=== PATIENT | female | born 1940 | race Caucasian/White ===

== ENCOUNTER 2021-06-08 08:52 | Emergency (ER) | payer OTHER ==
[~2021-06-08] VITALS: Ht 149.9 cm; Wt 70.8 kg
[2021-06-08 09:28] VITALS: BP 147/76
[2021-06-08 10:50] LABS: Basophils # (auto) 0.1 10 ^3/uL (0-0.2); Basophils % (auto) 2.7 % (0.0-2.0); Eosinophils # (auto) 0 10 ^3/uL (0-0.8); Eosinophils % (auto) 0.1 % (0.0-7.0); Hematocrit 42.8 % (36.0-46.0); Hemoglobin 14.5 g/dL (12.2-16.2); Lymphocytes # (auto) 0.3 10 ^3/uL (0.4-5.4); Lymphocytes % (auto) 7.5 % (10.0-50.0); Mean Corpuscular Hemoglobin 29.2 pg (28.0-32.0); Mean Corpuscular Hgb Conc. 33.8 g/dL (32.0-36.0); Mean Corpuscular Volume 86.2 fL (80.0-100.0); Monocytes # (auto) 0.3 10 ^3/uL (0-1.3); Monocytes % (auto) 6.5 % (0.0-12.0); Neutrophils # (auto) 3.6 10 ^3/uL (1.6-8.6); Neutrophils % (auto) 83.2 % (37.0-80.0); Nucleated Red Blood Cells % 0.3 %; Red Blood Cells 4.97 10^6/uL (4.0-5.20); Red Cell Distribution Width 14.3 % (11.8-14.3); White Blood Cell 4.3 10^3/uL (4.4-10.8)
[2021-06-08 10:57] LABS: Calcium 9.1 mg/dL (8.5-10.1); Potassium 3.9 mmol/L (3.5-5.1)
[2021-06-08 11:00] LABS: Bilirubin, Total 0.5 mg/dL (0.2-1.0); Total Protein 7.2 g/dL (6.4-8.2)
== END 2021-06-08 15:12 | disposition home or self-care (01) ==
LOC: ER 08:52
DX: U07.1 COVID-19 (principal); J12.82 Pneumonia due to coronavirus disease 2019; J44.9 Chronic obstructive pulmonary disease, unspecified; Z90.710 Acquired absence of both cervix and uterus
CPT/HCPCS: 36415; 71045; 80053; 82728; 83880; 85025; 86141

== ENCOUNTER 2021-06-12 10:11 | Inpatient (IN) | payer OTHER ==
[~2021-06-12] VITALS: Ht 149.9 cm; Wt 72.9 kg
[2021-06-12 12:37] LABS: Basophils # (auto) 0 10 ^3/uL (0-0.2); Basophils % (auto) 0.3 % (0.0-2.0); Eosinophils # (auto) 0 10 ^3/uL (0-0.8); Eosinophils % (auto) 0.1 % (0.0-7.0); Hematocrit 41.6 % (36.0-46.0); Hemoglobin 14.3 g/dL (12.2-16.2); Lymphocytes # (auto) 0.2 10 ^3/uL (0.4-5.4); Lymphocytes % (auto) 2.6 % (10.0-50.0); Mean Corpuscular Hemoglobin 29.2 pg (28.0-32.0); Mean Corpuscular Hgb Conc. 34.3 g/dL (32.0-36.0); Monocytes # (auto) 0.3 10 ^3/uL (0-1.3); Monocytes % (auto) 3.2 % (0.0-12.0); Neutrophils # (auto) 9.1 10 ^3/uL (1.6-8.6); Neutrophils % (auto) 93.8 % (37.0-80.0); Nucleated Red Blood Cells % 0.1 %; Red Cell Distribution Width 14.7 % (11.8-14.3); White Blood Cell 9.7 10^3/uL (4.4-10.8)
[2021-06-12 12:54] LABS: Albumin 2.5 g/dL (3.4-5.0); Anion Gap 6 (5-15); Blood Urea Nitrogen 25 mg/dL (7-18); Calcium 8.2 mg/dL (8.5-10.1); Carbon Dioxide 28 mmol/L (21-32); Chloride 102 mmol/L (98-107); Glucose 132 mg/dL (74-106); Potassium 4.3 mmol/L (3.5-5.1); Sodium 136 mmol/L (136-145)
[2021-06-12 12:59] LABS: Alanine Aminotransferase 41 U/L (13-56); Alkaline Phosphatase 59 U/L (45-117); Aspartate Aminotransferase 39 U/L (15-37); BUN/Creatinine Ratio 29.4; Bilirubin, Total 0.6 mg/dL (0.2-1.0); GFR African American 82 mL/min; GFR Non-African American 68 mL/min
[2021-06-12] MEDS ORDERED: traMADol HCL 50 MG TAB PO PRN (14:00)
[2021-06-12] MEDS ORDERED: ONDANSETRON HCL 4 MG/2 ML VIAL IV PRN (14:00)
[2021-06-12] MEDS ORDERED: NITROGLYCERIN 0.4 MG SL TAB SL PRN (14:00)
[2021-06-12] MEDS ORDERED: REMDESIVIR PER PHARMACY 0 ML IV SCH (14:00)
[2021-06-12] MEDS ORDERED: diphenhdrAMINE HCL 50 MG/1 ML VL IV PRN (14:00)
[2021-06-12] MEDS ORDERED: MORPHINE SULFATE INJECTION 2 MG/ML SYRG IV PRN ×2 (14:00)
[2021-06-12] MEDS ORDERED: LACTULOSE 20Gm/30ML SOLN PO PRN (14:00)
[2021-06-12] MEDS ORDERED: DEXTROSE (50%) 50ML SYRG IV PRN (14:45)
[2021-06-12] MEDS ORDERED: REMDESIVIR 200 MG in NS 210ml LOADING DOSE ADULT IV ONE (15:00)
[2021-06-12] MEDS: cefTRIAXone 1GM/50ML D5W 50 ML IV SCH (15:15)
[2021-06-12] MEDS: SODIUM CHLORIDE 0.9% 1,000 ML IV SCH (15:15)
[2021-06-12] MEDS: AZITHROMYCIN 500MG/ 250ML 250 ML IV SCH (16:36)
[2021-06-12] MEDS: InsuLIN REG 1unit/0.01ml Soln (100units/ml) SC SCH ×2 (16:50→22:00)
[2021-06-12] MEDS: ACCU-CHEK COMFORT CURVE STRIP VI SCH ×2 (17:11→21:57)
[2021-06-12 17:35] LABS: Urine Bacteria FEW /hpf (None Seen); Urine Blood Negative /uL (Negative); Urine Specific Gravity 1.013 (1.001-1.035); Urine WBC 6 /hpf (0 - 5)
[2021-06-12] MEDS: BUDESONIDE (INHALATION) 180 MCG IH IN SCH (18:43)
[2021-06-12] MEDS: ALBUTEROL SULF HFA 90MCG INH 200DOSE IN PRN (19:03)
[2021-06-12] MEDS: ENOXAPARIN SOD 40 MG/0.4 ML SYRINGE SC SCH (22:19)
[2021-06-12] MEDS: FLORASTOR (S. BOULARDII) 250 MG CAP PO SCH (22:20)
[2021-06-13 00:50] VITALS: BP 174/76
[2021-06-13 01:10] VITALS: BP 178/64
[2021-06-13 02:05] VITALS: BP 177/68
[2021-06-13 02:40] VITALS: BP 177/58
[2021-06-13] MEDS: SODIUM CHLORIDE 0.9% 1,000 ML IV SCH (04:00)
[2021-06-13] MEDS: hydrALAZINE HCL 20 MG/ML VL IV PRN (04:44)
[2021-06-13 06:22] LABS: Basophils # (auto) 0 10 ^3/uL (0-0.2); Basophils % (auto) 0.7 % (0.0-2.0); Eosinophils # (auto) 0 10 ^3/uL (0-0.8); Hematocrit 40.2 % (36.0-46.0); Hemoglobin 13.7 g/dL (12.2-16.2); Lymphocytes # (auto) 0.7 10 ^3/uL (0.4-5.4); Lymphocytes % (auto) 10.5 % (10.0-50.0); Mean Corpuscular Hemoglobin 29.1 pg (28.0-32.0); Mean Corpuscular Volume 85.6 fL (80.0-100.0); Monocytes # (auto) 0.4 10 ^3/uL (0-1.3); Monocytes % (auto) 6.3 % (0.0-12.0); Neutrophils # (auto) 5.8 10 ^3/uL (1.6-8.6); Neutrophils % (auto) 82.5 % (37.0-80.0); Nucleated Red Blood Cells % 0.1 %; Red Blood Cells 4.69 10^6/uL (4.0-5.20); Red Cell Distribution Width 14.5 % (11.8-14.3)
[2021-06-13] MEDS: InsuLIN REG 1unit/0.01ml Soln (100units/ml) SC SCH ×4 (06:35→22:14)
[2021-06-13] MEDS: ACCU-CHEK COMFORT CURVE STRIP VI SCH ×4 (06:35→22:09)
[2021-06-13 06:41] LABS: Calcium 7.7 mg/dL (8.5-10.1)
[2021-06-13 06:43] LABS: BUN/Creatinine Ratio 35.5
[2021-06-13 06:46] LABS: Bilirubin, Total 0.4 mg/dL (0.2-1.0); Total Protein 6.3 g/dL (6.4-8.2)
[2021-06-13] MEDS: BUDESONIDE (INHALATION) 180 MCG IH IN SCH ×2 (08:11→18:40)
[2021-06-13] MEDS: ALBUTEROL SULF HFA 90MCG INH 200DOSE IN PRN ×2 (08:11→19:31)
[2021-06-13] MEDS: cefTRIAXone 1GM/50ML D5W 50 ML IV SCH (08:55)
[2021-06-13] MEDS: ENOXAPARIN SOD 40 MG/0.4 ML SYRINGE SC SCH ×2 (09:51→22:08)
[2021-06-13] MEDS: DexAMETHasone SOD PHOS 10MG/1ML VIAL INJ IV SCH (09:51)
[2021-06-13] MEDS: ZINC SULFATE 220mg CAP or TAB PO SCH (09:51)
[2021-06-13] MEDS: ASCORBIC ACID 1,000 MG TAB PO SCH (09:51)
[2021-06-13] MEDS: FLORASTOR (S. BOULARDII) 250 MG CAP PO SCH ×2 (09:51→22:07)
[2021-06-13] MEDS: AZITHROMYCIN 500MG/ 250ML 250 ML IV SCH (09:51)
[2021-06-13] MEDS: CHOLECALCIFEROL (VITD3) 2,000 UNIT CAP/TAB PO SCH (09:52)
[2021-06-13] MEDS ORDERED: IVERMECTIN 3 MG TAB PO SCH (10:00)
[2021-06-13] MEDS: REMDESIVIR 100mg 100 MG in SODIUM CHL 0.9% 230 ML IV SCH (14:19)
[2021-06-13 22:00] VITALS: BP 147/76
[2021-06-14 05:00] VITALS: BP 162/80
[2021-06-14] MEDS: hydrALAZINE HCL 20 MG/ML VL IV PRN ×2 (05:10→12:10)
[2021-06-14] MEDS: BUDESONIDE (INHALATION) 180 MCG IH IN SCH ×2 (06:24→22:17)
[2021-06-14] MEDS: ALBUTEROL SULF HFA 90MCG INH 200DOSE IN PRN ×2 (06:24→22:17)
[2021-06-14] MEDS: InsuLIN REG 1unit/0.01ml Soln (100units/ml) SC SCH ×4 (06:31→21:50)
[2021-06-14] MEDS: ACCU-CHEK COMFORT CURVE STRIP VI SCH ×4 (06:32→21:50)
[2021-06-14 08:00] VITALS: BP 120/45
[2021-06-14 09:00] VITALS: BP 120/45
[2021-06-14] MEDS: cefTRIAXone 1GM/50ML D5W 50 ML IV SCH (09:13)
[2021-06-14] MEDS: DexAMETHasone SOD PHOS 10MG/1ML VIAL INJ IV SCH (09:14)
[2021-06-14] MEDS: FLORASTOR (S. BOULARDII) 250 MG CAP PO SCH ×2 (09:14→21:48)
[2021-06-14] MEDS: ASCORBIC ACID 1,000 MG TAB PO SCH (09:14)
[2021-06-14] MEDS: CHOLECALCIFEROL (VITD3) 2,000 UNIT CAP/TAB PO SCH (09:15)
[2021-06-14] MEDS: ZINC SULFATE 220mg CAP or TAB PO SCH (09:15)
[2021-06-14] MEDS: ENOXAPARIN SOD 40 MG/0.4 ML SYRINGE SC SCH ×2 (10:30→21:48)
[2021-06-14] MEDS: AZITHROMYCIN 500MG/ 250ML 250 ML IV SCH (10:40)
[2021-06-14 13:00] VITALS: BP 162/74
[2021-06-14] MEDS: REMDESIVIR 100mg 100 MG in SODIUM CHL 0.9% 230 ML IV SCH (15:16)
[2021-06-14 17:00] VITALS: BP 160/80
[2021-06-14] MEDS ORDERED: LISI-716 PO (17:22)
[2021-06-14] MEDS ORDERED: LISINOPRIL 20 MG TAB PO ONE (17:30)
[2021-06-14 21:47] VITALS: BP 137/54
[2021-06-15 05:34] VITALS: BP 140/60
[2021-06-15] MEDS: InsuLIN REG 1unit/0.01ml Soln (100units/ml) SC SCH ×4 (06:34→21:33)
[2021-06-15] MEDS: BUDESONIDE (INHALATION) 180 MCG IH IN SCH ×2 (06:43→21:56)
[2021-06-15] MEDS: ALBUTEROL SULF HFA 90MCG INH 200DOSE IN PRN ×2 (06:43→21:56)
[2021-06-15] MEDS: ACCU-CHEK COMFORT CURVE STRIP VI SCH ×4 (07:00→21:25)
[2021-06-15 07:18] LABS: Basophils # (auto) 0 10 ^3/uL (0-0.2); Basophils % (auto) 0.5 % (0.0-2.0); Eosinophils # (auto) 0 10 ^3/uL (0-0.8); Hematocrit 41.7 % (36.0-46.0); Hemoglobin 13.8 g/dL (12.2-16.2); Lymphocytes # (auto) 0.7 10 ^3/uL (0.4-5.4); Lymphocytes % (auto) 6.4 % (10.0-50.0); Mean Corpuscular Hgb Conc. 33.2 g/dL (32.0-36.0); Mean Corpuscular Volume 87.5 fL (80.0-100.0); Monocytes # (auto) 0.8 10 ^3/uL (0-1.3); Monocytes % (auto) 7.4 % (0.0-12.0); Neutrophils # (auto) 8.9 10 ^3/uL (1.6-8.6); Neutrophils % (auto) 85.7 % (37.0-80.0); Red Blood Cells 4.77 10^6/uL (4.0-5.20); White Blood Cell 10.4 10^3/uL (4.4-10.8)
[2021-06-15 07:23] LABS: Potassium 3.8 mmol/L (3.5-5.1)
[2021-06-15 07:26] LABS: Albumin 1.9 g/dL (3.4-5.0); BUN/Creatinine Ratio 34.3; Calcium 8.3 mg/dL (8.5-10.1)
[2021-06-15 07:33] LABS: Bilirubin, Total 0.5 mg/dL (0.2-1.0); Total Protein 5.9 g/dL (6.4-8.2)
[2021-06-15] MEDS: FLORASTOR (S. BOULARDII) 250 MG CAP PO SCH ×2 (09:34→21:33)
[2021-06-15] MEDS: ZINC SULFATE 220mg CAP or TAB PO SCH (09:34)
[2021-06-15] MEDS: AZITHROMYCIN 500MG/ 250ML 250 ML IV SCH (09:34)
[2021-06-15] MEDS: cefTRIAXone 1GM/50ML D5W 50 ML IV SCH (09:34)
[2021-06-15] MEDS: ENOXAPARIN SOD 40 MG/0.4 ML SYRINGE SC SCH (09:35)
[2021-06-15] MEDS: ASCORBIC ACID 1,000 MG TAB PO SCH (09:35)
[2021-06-15] MEDS: DexAMETHasone SOD PHOS 10MG/1ML VIAL INJ IV SCH (09:35)
[2021-06-15] MEDS: CHOLECALCIFEROL (VITD3) 2,000 UNIT CAP/TAB PO SCH (09:35)
[2021-06-15] MEDS: LISINOPRIL 20 MG TAB PO SCH (09:36)
[2021-06-15] MEDS ORDERED: ENOXAPARIN SOD 30 MG/0.3 ML SYRINGE SC ONE (10:45)
[2021-06-15] MEDS: REMDESIVIR 100mg 100 MG in SODIUM CHL 0.9% 230 ML IV SCH (15:13)
[2021-06-15] MEDS: ACETAMINOPHEN 500 MG TAB PO PRN (17:34)
[2021-06-15] MEDS: ENOXAPARIN SOD 80 MG/0.8ML SYRINGE SC SCH (21:33)
[2021-06-15 22:03] VITALS: BP 141/62
[2021-06-16 05:04] VITALS: BP 145/68
[2021-06-16 05:50] LABS: Hematocrit 39.1 % (36.0-46.0); Hemoglobin 13.1 g/dL (12.2-16.2); Mean Corpuscular Hgb Conc. 33.6 g/dL (32.0-36.0); Mean Corpuscular Volume 86.3 fL (80.0-100.0); Red Blood Cells 4.53 10^6/uL (4.0-5.20); Red Cell Distribution Width 14.9 % (11.8-14.3); White Blood Cell 7.9 10^3/uL (4.4-10.8)
[2021-06-16 06:15] LABS: Band Neutrophils % (manual) 0; Basophils % (manual) 0 (0.0-2.0); Blast Cells 0; Eosinophils % (manual) 0 (0-7); Myelocytes % 0; Promyelocytes % 0; Reactive Lymphocytes 0
[2021-06-16] MEDS: ALBUTEROL SULF HFA 90MCG INH 200DOSE IN PRN ×2 (06:16→20:19)
[2021-06-16] MEDS: BUDESONIDE (INHALATION) 180 MCG IH IN SCH ×2 (06:16→20:19)
[2021-06-16] MEDS: ACCU-CHEK COMFORT CURVE STRIP VI SCH ×4 (06:40→21:38)
[2021-06-16] MEDS: InsuLIN REG 1unit/0.01ml Soln (100units/ml) SC SCH ×4 (06:40→21:39)
[2021-06-16 06:51] LABS: Potassium 4.3 mmol/L (3.5-5.1)
[2021-06-16 06:59] LABS: Albumin 1.7 g/dL (3.4-5.0); BUN/Creatinine Ratio 31.1; Calcium 8.3 mg/dL (8.5-10.1)
[2021-06-16 07:01] LABS: Bilirubin, Total 0.5 mg/dL (0.2-1.0); Total Protein 5.3 g/dL (6.4-8.2)
[2021-06-16 07:47] LABS: Lymphocytes % (manual) 4 (10.0-50.0); Metamyelocytes % 1; Monocytes % (manual) 6 (0-12)
[2021-06-16 09:00] VITALS: BP 134/84
[2021-06-16] MEDS: FLORASTOR (S. BOULARDII) 250 MG CAP PO SCH ×2 (10:15→21:41)
[2021-06-16] MEDS: cefTRIAXone 1GM/50ML D5W 50 ML IV SCH (10:15)
[2021-06-16] MEDS: ZINC SULFATE 220mg CAP or TAB PO SCH (10:15)
[2021-06-16] MEDS: DexAMETHasone SOD PHOS 10MG/1ML VIAL INJ IV SCH (10:15)
[2021-06-16] MEDS: ASCORBIC ACID 1,000 MG TAB PO SCH (10:16)
[2021-06-16] MEDS: ENOXAPARIN SOD 80 MG/0.8ML SYRINGE SC SCH ×2 (10:16→21:41)
[2021-06-16] MEDS: LISINOPRIL 20 MG TAB PO SCH (10:16)
[2021-06-16] MEDS: CHOLECALCIFEROL (VITD3) 2,000 UNIT CAP/TAB PO SCH (10:16)
[2021-06-16] MEDS: ACETAMINOPHEN 500 MG TAB PO PRN (10:38)
[2021-06-16] MEDS: AZITHROMYCIN 500MG/ 250ML 250 ML IV SCH (12:17)
[2021-06-16 13:00] VITALS: BP 150/62
[2021-06-16] MEDS: REMDESIVIR 100mg 100 MG in SODIUM CHL 0.9% 230 ML IV SCH (15:41)
[2021-06-16 17:00] VITALS: BP 142/58
[2021-06-16 22:00] VITALS: BP 131/57
[2021-06-17 05:00] VITALS: BP 126/57
[2021-06-17 05:38] LABS: Hematocrit 39.2 % (36.0-46.0); Hemoglobin 13.2 g/dL (12.2-16.2); Mean Corpuscular Hemoglobin 28.6 pg (28.0-32.0); Mean Corpuscular Hgb Conc. 33.7 g/dL (32.0-36.0); Mean Corpuscular Volume 84.9 fL (80.0-100.0); Red Blood Cells 4.62 10^6/uL (4.0-5.20); Red Cell Distribution Width 14.7 % (11.8-14.3); White Blood Cell 9.3 10^3/uL (4.4-10.8)
[2021-06-17 06:15] LABS: Band Neutrophils % (manual) 0; Basophils % (manual) 0 (0.0-2.0); Blast Cells 0; Eosinophils % (manual) 0 (0-7); Metamyelocytes % 0; Myelocytes % 0; Promyelocytes % 0; Reactive Lymphocytes 0
[2021-06-17] MEDS: ALBUTEROL SULF HFA 90MCG INH 200DOSE IN PRN ×2 (06:18→21:07)
[2021-06-17] MEDS: BUDESONIDE (INHALATION) 180 MCG IH IN SCH ×2 (06:18→21:06)
[2021-06-17] MEDS: InsuLIN REG 1unit/0.01ml Soln (100units/ml) SC SCH ×4 (06:19→22:08)
[2021-06-17] MEDS: ACCU-CHEK COMFORT CURVE STRIP VI SCH ×4 (06:20→22:09)
[2021-06-17 06:30] LABS: Potassium 4.3 mmol/L (3.5-5.1)
[2021-06-17 06:35] LABS: Albumin 1.7 g/dL (3.4-5.0); BUN/Creatinine Ratio 37.3
[2021-06-17 06:38] LABS: Bilirubin, Total 0.6 mg/dL (0.2-1.0); Total Protein 5.5 g/dL (6.4-8.2)
[2021-06-17 08:10] LABS: Lymphocytes % (manual) 3 (10.0-50.0); Monocytes % (manual) 5 (0-12)
[2021-06-17 09:00] VITALS: BP 120/45
[2021-06-17] MEDS: ASCORBIC ACID 1,000 MG TAB PO SCH (10:00)
[2021-06-17] MEDS: FLORASTOR (S. BOULARDII) 250 MG CAP PO SCH ×2 (10:00→22:09)
[2021-06-17] MEDS: DexAMETHasone SOD PHOS 10MG/1ML VIAL INJ IV SCH (10:26)
[2021-06-17] MEDS: ZINC SULFATE 220mg CAP or TAB PO SCH (10:26)
[2021-06-17] MEDS: cefTRIAXone 1GM/50ML D5W 50 ML IV SCH (10:26)
[2021-06-17] MEDS: ENOXAPARIN SOD 80 MG/0.8ML SYRINGE SC SCH ×2 (10:27→22:09)
[2021-06-17] MEDS: CHOLECALCIFEROL (VITD3) 2,000 UNIT CAP/TAB PO SCH (10:27)
[2021-06-17] MEDS: LISINOPRIL 20 MG TAB PO SCH (12:09)
[2021-06-17 13:00] VITALS: BP 122/57
[2021-06-17 17:00] VITALS: BP 142/70
[2021-06-17 22:00] VITALS: BP 139/79
[2021-06-18 05:00] VITALS: BP 120/52
[2021-06-18 06:01] LABS: Potassium 4.5 mmol/L (3.5-5.1)
[2021-06-18] MEDS: BUDESONIDE (INHALATION) 180 MCG IH IN SCH ×2 (06:01→21:15)
[2021-06-18] MEDS: ALBUTEROL SULF HFA 90MCG INH 200DOSE IN PRN ×2 (06:01→21:15)
[2021-06-18 06:16] LABS: Basophils # (auto) 0 10 ^3/uL (0-0.2); Basophils % (auto) 0.5 % (0.0-2.0); Eosinophils # (auto) 0 10 ^3/uL (0-0.8); Hematocrit 40.7 % (36.0-46.0); Hemoglobin 13.6 g/dL (12.2-16.2); Lymphocytes # (auto) 0.5 10 ^3/uL (0.4-5.4); Lymphocytes % (auto) 4.7 % (10.0-50.0); Mean Corpuscular Hemoglobin 29.1 pg (28.0-32.0); Mean Corpuscular Hgb Conc. 33.5 g/dL (32.0-36.0); Mean Corpuscular Volume 86.7 fL (80.0-100.0); Monocytes # (auto) 0.4 10 ^3/uL (0-1.3); Monocytes % (auto) 4.6 % (0.0-12.0); Neutrophils # (auto) 8.6 10 ^3/uL (1.6-8.6); Neutrophils % (auto) 90.2 % (37.0-80.0); Nucleated Red Blood Cells % 0.1 %; Red Blood Cells 4.69 10^6/uL (4.0-5.20); Red Cell Distribution Width 14.7 % (11.8-14.3); White Blood Cell 9.5 10^3/uL (4.4-10.8)
[2021-06-18 06:24] LABS: Albumin 1.8 g/dL (3.4-5.0); BUN/Creatinine Ratio 36.8; Bilirubin, Total 0.6 mg/dL (0.2-1.0); Calcium 8.2 mg/dL (8.5-10.1); Total Protein 5.6 g/dL (6.4-8.2)
[2021-06-18] MEDS: ACCU-CHEK COMFORT CURVE STRIP VI SCH ×4 (06:30→23:00)
[2021-06-18] MEDS: InsuLIN REG 1unit/0.01ml Soln (100units/ml) SC SCH ×4 (06:30→23:00)
[2021-06-18 08:29] VITALS: BP 145/51
[2021-06-18] MEDS: cefTRIAXone 1GM/50ML D5W 50 ML IV SCH (09:39)
[2021-06-18] MEDS: DexAMETHasone SOD PHOS 10MG/1ML VIAL INJ IV SCH (10:03)
[2021-06-18] MEDS: ASCORBIC ACID 1,000 MG TAB PO SCH (10:03)
[2021-06-18] MEDS: FLORASTOR (S. BOULARDII) 250 MG CAP PO SCH ×2 (10:03→23:00)
[2021-06-18] MEDS: ZINC SULFATE 220mg CAP or TAB PO SCH (10:03)
[2021-06-18] MEDS: CHOLECALCIFEROL (VITD3) 2,000 UNIT CAP/TAB PO SCH (10:03)
[2021-06-18] MEDS: ENOXAPARIN SOD 80 MG/0.8ML SYRINGE SC SCH ×2 (10:04→23:00)
[2021-06-18] MEDS: LISINOPRIL 20 MG TAB PO SCH (10:04)
[2021-06-18 17:00] VITALS: BP 136/51
[2021-06-18 22:00] VITALS: BP 121/49
[2021-06-19 05:00] VITALS: BP 121/48
[2021-06-19 06:54] LABS: Potassium 4.7 mmol/L (3.5-5.1)
[2021-06-19] MEDS: InsuLIN REG 1unit/0.01ml Soln (100units/ml) SC SCH ×4 (07:00→21:45)
[2021-06-19 07:03] LABS: Albumin 1.7 g/dL (3.4-5.0); BUN/Creatinine Ratio 45.3; Bilirubin, Total 0.4 mg/dL (0.2-1.0); Calcium 8.3 mg/dL (8.5-10.1); Total Protein 5.4 g/dL (6.4-8.2)
[2021-06-19 07:04] LABS: Hematocrit 39.7 % (36.0-46.0); Hemoglobin 13.3 g/dL (12.2-16.2); Mean Corpuscular Hemoglobin 28.7 pg (28.0-32.0); Mean Corpuscular Hgb Conc. 33.4 g/dL (32.0-36.0); Red Blood Cells 4.62 10^6/uL (4.0-5.20); Red Cell Distribution Width 14.8 % (11.8-14.3); White Blood Cell 9.9 10^3/uL (4.4-10.8)
[2021-06-19] MEDS: ACCU-CHEK COMFORT CURVE STRIP VI SCH ×4 (07:04→22:35)
[2021-06-19 07:18] LABS: Basophils % (manual) 0 (0.0-2.0); Blast Cells 0; Eosinophils % (manual) 0 (0-7); Metamyelocytes % 0; Promyelocytes % 0; Reactive Lymphocytes 0
[2021-06-19 09:00] VITALS: BP 133/86
[2021-06-19] MEDS: cefTRIAXone 1GM/50ML D5W 50 ML IV SCH (09:00)
[2021-06-19 09:12] LABS: Band Neutrophils % (manual) 4; Lymphocytes % (manual) 5 (10.0-50.0); Monocytes % (manual) 10 (0-12); Myelocytes % 1
[2021-06-19] MEDS: ALBUTEROL SULF HFA 90MCG INH 200DOSE IN PRN ×2 (09:34→20:07)
[2021-06-19] MEDS: BUDESONIDE (INHALATION) 180 MCG IH IN SCH ×2 (09:34→19:13)
[2021-06-19] MEDS: ZINC SULFATE 220mg CAP or TAB PO SCH (09:54)
[2021-06-19] MEDS: DexAMETHasone SOD PHOS 10MG/1ML VIAL INJ IV SCH (09:54)
[2021-06-19] MEDS: CHOLECALCIFEROL (VITD3) 2,000 UNIT CAP/TAB PO SCH (09:55)
[2021-06-19] MEDS: LISINOPRIL 20 MG TAB PO SCH (09:55)
[2021-06-19] MEDS: FLORASTOR (S. BOULARDII) 250 MG CAP PO SCH ×2 (09:55→22:34)
[2021-06-19] MEDS: ASCORBIC ACID 1,000 MG TAB PO SCH (09:55)
[2021-06-19] MEDS: ENOXAPARIN SOD 80 MG/0.8ML SYRINGE SC SCH ×2 (09:56→22:35)
[2021-06-19 13:00] VITALS: BP 125/61
[2021-06-19 16:42] VITALS: BP 136/58
[2021-06-19 22:00] VITALS: BP 113/52
[2021-06-20 05:00] VITALS: BP 128/58
[2021-06-20 05:54] LABS: Potassium 4.9 mmol/L (3.5-5.1)
[2021-06-20 05:59] LABS: Basophils # (auto) 0.1 10 ^3/uL (0-0.2); Basophils % (auto) 0.6 % (0.0-2.0); Eosinophils # (auto) 0 10 ^3/uL (0-0.8); Hematocrit 37.7 % (36.0-46.0); Hemoglobin 12.9 g/dL (12.2-16.2); Lymphocytes # (auto) 0.6 10 ^3/uL (0.4-5.4); Lymphocytes % (auto) 6.1 % (10.0-50.0); Mean Corpuscular Hemoglobin 29.3 pg (28.0-32.0); Mean Corpuscular Hgb Conc. 34.1 g/dL (32.0-36.0); Monocytes # (auto) 0.5 10 ^3/uL (0-1.3); Monocytes % (auto) 5.6 % (0.0-12.0); Neutrophils # (auto) 8.3 10 ^3/uL (1.6-8.6); Neutrophils % (auto) 87.7 % (37.0-80.0); Red Blood Cells 4.38 10^6/uL (4.0-5.20); Red Cell Distribution Width 14.8 % (11.8-14.3); White Blood Cell 9.5 10^3/uL (4.4-10.8)
[2021-06-20 06:03] LABS: Albumin 1.7 g/dL (3.4-5.0); BUN/Creatinine Ratio 42.9; Bilirubin, Total 0.5 mg/dL (0.2-1.0); Total Protein 5.3 g/dL (6.4-8.2)
[2021-06-20] MEDS: ACCU-CHEK COMFORT CURVE STRIP VI SCH ×4 (06:38→21:21)
[2021-06-20] MEDS: InsuLIN REG 1unit/0.01ml Soln (100units/ml) SC SCH ×4 (06:38→21:22)
[2021-06-20] MEDS: ALBUTEROL SULF HFA 90MCG INH 200DOSE IN PRN (06:45)
[2021-06-20] MEDS: BUDESONIDE (INHALATION) 180 MCG IH IN SCH ×2 (06:45→21:38)
[2021-06-20 09:00] VITALS: BP 123/61
[2021-06-20] MEDS: cefTRIAXone 1GM/50ML D5W 50 ML IV SCH (09:20)
[2021-06-20] MEDS: DexAMETHasone SOD PHOS 10MG/1ML VIAL INJ IV SCH (09:21)
[2021-06-20] MEDS: ZINC SULFATE 220mg CAP or TAB PO SCH (09:21)
[2021-06-20] MEDS: FLORASTOR (S. BOULARDII) 250 MG CAP PO SCH ×2 (09:21→21:21)
[2021-06-20] MEDS: ASCORBIC ACID 1,000 MG TAB PO SCH (09:21)
[2021-06-20] MEDS: CHOLECALCIFEROL (VITD3) 2,000 UNIT CAP/TAB PO SCH (09:22)
[2021-06-20] MEDS: LISINOPRIL 20 MG TAB PO SCH (09:23)
[2021-06-20] MEDS: ENOXAPARIN SOD 80 MG/0.8ML SYRINGE SC SCH ×2 (09:23→21:21)
[2021-06-20 13:00] VITALS: BP 141/60
[2021-06-20 16:50] VITALS: BP 122/57
[2021-06-20 22:00] VITALS: BP 134/58
[2021-06-21 05:00] VITALS: BP 104/43
[2021-06-21] MEDS: InsuLIN REG 1unit/0.01ml Soln (100units/ml) SC SCH ×4 (06:22→21:43)
[2021-06-21] MEDS: ACCU-CHEK COMFORT CURVE STRIP VI SCH ×4 (06:22→21:39)
[2021-06-21] MEDS: ALBUTEROL SULF HFA 90MCG INH 200DOSE IN PRN ×2 (06:35→22:09)
[2021-06-21] MEDS: BUDESONIDE (INHALATION) 180 MCG IH IN SCH ×2 (06:35→22:09)
[2021-06-21 06:59] LABS: Basophils # (auto) 0.1 10 ^3/uL (0-0.2); Basophils % (auto) 0.6 % (0.0-2.0); Eosinophils # (auto) 0 10 ^3/uL (0-0.8); Hematocrit 37.2 % (36.0-46.0); Hemoglobin 12.3 g/dL (12.2-16.2); Lymphocytes # (auto) 0.7 10 ^3/uL (0.4-5.4); Lymphocytes % (auto) 7.7 % (10.0-50.0); Mean Corpuscular Hemoglobin 28.4 pg (28.0-32.0); Mean Corpuscular Hgb Conc. 33.1 g/dL (32.0-36.0); Mean Corpuscular Volume 85.9 fL (80.0-100.0); Monocytes # (auto) 0.6 10 ^3/uL (0-1.3); Monocytes % (auto) 7.1 % (0.0-12.0); Neutrophils # (auto) 7.5 10 ^3/uL (1.6-8.6); Neutrophils % (auto) 84.6 % (37.0-80.0); Nucleated Red Blood Cells % 0.1 %; Red Blood Cells 4.33 10^6/uL (4.0-5.20); White Blood Cell 8.9 10^3/uL (4.4-10.8)
[2021-06-21 07:16] LABS: Albumin 1.6 g/dL (3.4-5.0); Potassium 4.6 mmol/L (3.5-5.1)
[2021-06-21 07:20] LABS: BUN/Creatinine Ratio 47.2; Bilirubin, Total 0.5 mg/dL (0.2-1.0); Total Protein 5.1 g/dL (6.4-8.2)
[2021-06-21 09:00] VITALS: BP 111/40
[2021-06-21] MEDS: DexAMETHasone SOD PHOS 10MG/1ML VIAL INJ IV SCH (09:15)
[2021-06-21] MEDS: cefTRIAXone 1GM/50ML D5W 50 ML IV SCH (09:15)
[2021-06-21] MEDS: FLORASTOR (S. BOULARDII) 250 MG CAP PO SCH ×2 (09:16→21:39)
[2021-06-21] MEDS: ZINC SULFATE 220mg CAP or TAB PO SCH (09:16)
[2021-06-21] MEDS: CHOLECALCIFEROL (VITD3) 2,000 UNIT CAP/TAB PO SCH (09:16)
[2021-06-21] MEDS: ASCORBIC ACID 1,000 MG TAB PO SCH (09:16)
[2021-06-21] MEDS: ENOXAPARIN SOD 80 MG/0.8ML SYRINGE SC SCH ×2 (09:17→21:39)
[2021-06-21] MEDS: LISINOPRIL 20 MG TAB PO SCH (09:17)
[2021-06-21 13:00] VITALS: BP 135/56
[2021-06-21 16:41] VITALS: BP 126/52
[2021-06-21 22:00] VITALS: BP 103/72
[2021-06-22 05:00] VITALS: BP 134/59
[2021-06-22] MEDS: InsuLIN REG 1unit/0.01ml Soln (100units/ml) SC SCH ×4 (06:30→22:03)
[2021-06-22] MEDS: ACCU-CHEK COMFORT CURVE STRIP VI SCH ×4 (06:30→22:05)
[2021-06-22 07:01] LABS: Basophils # (auto) 0 10 ^3/uL (0-0.2); Basophils % (auto) 0.3 % (0.0-2.0); Eosinophils # (auto) 0 10 ^3/uL (0-0.8); Hematocrit 36.2 % (36.0-46.0); Hemoglobin 12.1 g/dL (12.2-16.2); Lymphocytes # (auto) 0.8 10 ^3/uL (0.4-5.4); Lymphocytes % (auto) 7.7 % (10.0-50.0); Mean Corpuscular Hemoglobin 28.8 pg (28.0-32.0); Mean Corpuscular Hgb Conc. 33.3 g/dL (32.0-36.0); Mean Corpuscular Volume 86.3 fL (80.0-100.0); Monocytes # (auto) 0.6 10 ^3/uL (0-1.3); Monocytes % (auto) 5.7 % (0.0-12.0); Neutrophils # (auto) 9.5 10 ^3/uL (1.6-8.6); Neutrophils % (auto) 86.3 % (37.0-80.0); Red Blood Cells 4.19 10^6/uL (4.0-5.20); Red Cell Distribution Width 14.5 % (11.8-14.3)
[2021-06-22 07:15] LABS: Potassium 4.4 mmol/L (3.5-5.1)
[2021-06-22 07:26] LABS: Albumin 1.8 g/dL (3.4-5.0); BUN/Creatinine Ratio 55.7; Bilirubin, Total 0.5 mg/dL (0.2-1.0); Calcium 8.1 mg/dL (8.5-10.1); Total Protein 5.3 g/dL (6.4-8.2)
[2021-06-22 08:52] VITALS: BP 129/49
[2021-06-22] MEDS: ENOXAPARIN SOD 80 MG/0.8ML SYRINGE SC SCH ×2 (09:50→22:05)
[2021-06-22] MEDS: cefTRIAXone 1GM/50ML D5W 50 ML IV SCH (09:50)
[2021-06-22] MEDS: FLORASTOR (S. BOULARDII) 250 MG CAP PO SCH ×2 (09:51→22:05)
[2021-06-22] MEDS: ZINC SULFATE 220mg CAP or TAB PO SCH (09:51)
[2021-06-22] MEDS: CHOLECALCIFEROL (VITD3) 2,000 UNIT CAP/TAB PO SCH (09:51)
[2021-06-22] MEDS: DexAMETHasone SOD PHOS 10MG/1ML VIAL INJ IV SCH (09:51)
[2021-06-22] MEDS: ASCORBIC ACID 1,000 MG TAB PO SCH (09:52)
[2021-06-22] MEDS: LISINOPRIL 20 MG TAB PO SCH (09:52)
[2021-06-22] MEDS: ALBUTEROL SULF HFA 90MCG INH 200DOSE IN PRN ×2 (10:25→21:05)
[2021-06-22] MEDS: BUDESONIDE (INHALATION) 180 MCG IH IN SCH ×2 (10:25→21:05)
[2021-06-22 13:00] VITALS: BP 135/55
[2021-06-22 17:00] VITALS: BP 125/56
[2021-06-22 21:37] VITALS: BP 118/54
[2021-06-23 05:00] VITALS: BP 132/53
[2021-06-23 05:44] LABS: Basophils # (auto) 0.1 10 ^3/uL (0-0.2); Basophils % (auto) 0.8 % (0.0-2.0); Eosinophils # (auto) 0 10 ^3/uL (0-0.8); Hemoglobin 11.4 g/dL (12.2-16.2); Lymphocytes # (auto) 0.8 10 ^3/uL (0.4-5.4); Lymphocytes % (auto) 9.2 % (10.0-50.0); Mean Corpuscular Hemoglobin 28.9 pg (28.0-32.0); Mean Corpuscular Hgb Conc. 33.5 g/dL (32.0-36.0); Mean Corpuscular Volume 86.4 fL (80.0-100.0); Monocytes # (auto) 0.6 10 ^3/uL (0-1.3); Neutrophils # (auto) 7.3 10 ^3/uL (1.6-8.6); Red Blood Cells 3.93 10^6/uL (4.0-5.20); Red Cell Distribution Width 14.6 % (11.8-14.3); White Blood Cell 8.8 10^3/uL (4.4-10.8)
[2021-06-23 05:55] LABS: Potassium 4.5 mmol/L (3.5-5.1)
[2021-06-23 06:04] LABS: BUN/Creatinine Ratio 53.1; Calcium 7.9 mg/dL (8.5-10.1)
[2021-06-23] MEDS: InsuLIN REG 1unit/0.01ml Soln (100units/ml) SC SCH ×2 (06:18→11:20)
[2021-06-23] MEDS: ACCU-CHEK COMFORT CURVE STRIP VI SCH ×2 (06:18→11:20)
[2021-06-23] MEDS: BUDESONIDE (INHALATION) 180 MCG IH IN SCH (06:27)
[2021-06-23] MEDS: ALBUTEROL SULF HFA 90MCG INH 200DOSE IN PRN (06:27)
[2021-06-23 06:29] LABS: Albumin 1.6 g/dL (3.4-5.0); Bilirubin, Total 0.5 mg/dL (0.2-1.0)
[2021-06-23 09:00] VITALS: BP 128/52
[2021-06-23] MEDS: cefTRIAXone 1GM/50ML D5W 50 ML IV SCH (09:58)
[2021-06-23] MEDS: ASCORBIC ACID 1,000 MG TAB PO SCH (09:58)
[2021-06-23] MEDS: CHOLECALCIFEROL (VITD3) 2,000 UNIT CAP/TAB PO SCH (09:58)
[2021-06-23] MEDS: ENOXAPARIN SOD 80 MG/0.8ML SYRINGE SC SCH (09:58)
[2021-06-23] MEDS: DexAMETHasone SOD PHOS 10MG/1ML VIAL INJ IV SCH (09:58)
[2021-06-23] MEDS: FLORASTOR (S. BOULARDII) 250 MG CAP PO SCH (09:58)
[2021-06-23] MEDS: ZINC SULFATE 220mg CAP or TAB PO SCH (09:59)
[2021-06-23] MEDS: LISINOPRIL 20 MG TAB PO SCH (09:59)
== END 2021-06-23 15:17 | disposition home or self-care (01) | DRG 177 ==
LOC: ER 10:11 → TELE 13:46 → TELE-EAST 06-13 20:18
PROVIDERS: ADMIT Internal Medicine; ATTEND Internal Medicine
PROC: XW033E5 Introduction of Remdesivir Anti-infective into Peripheral Vein, Percutaneous Approach, New Technology Group 5 (ICD-10-PCS; 2021-06-12)
PROC: XW13325 Transfusion of Convalescent Plasma (Nonautologous) into Peripheral Vein, Percutaneous Approach, New Technology Group 5 (ICD-10-PCS; principal; 2021-06-13)
DX: U07.1 COVID-19 (principal); J12.82 Pneumonia due to coronavirus disease 2019; J96.01 Acute respiratory failure with hypoxia; J44.0 Chronic obstructive pulmonary disease with (acute) lower respiratory infection; R73.9 Hyperglycemia, unspecified; I10 Essential (primary) hypertension; K21.9 Gastro-esophageal reflux disease without esophagitis; E66.9 Obesity, unspecified; M19.90 Unspecified osteoarthritis, unspecified site; Z90.710 Acquired absence of both cervix and uterus; Z83.3 Family history of diabetes mellitus; Z68.32 Body mass index [BMI] 32.0-32.9, adult
CPT/HCPCS: 36415; 36430; 71045; 80053; 81001; 82962; 83036; 84484; 85007; 85025; 85027; 86850; 86870; 86900; 86901; 87426; 93005; 94640; 96365; 96368; 99291; G0378; J0696; J1100; J1815